=== PATIENT | male | born 1990 | race Caucasian/White ===

== ENCOUNTER 2022-07-29 18:58 | Emergency (ER) | payer OTHER ==
[2022-07-29 19:03] VITALS: BP 130/80; PULSE 88; RESP 18; TEMP 98.8; BMI 37.3
[2022-07-29] MEDS ORDERED: FOLIC ACID 1 MG TABLET (FP) PO ONE (21:28)
[2022-07-29] MEDS ORDERED: MULTIVITAMINS (DAILY MVI) TABLET (FP) PO ONE (21:28)
[2022-07-29] MEDS ORDERED: chlordiazePOXIDE HCL 25 MG CAPSULE PO ONE (21:28)
[2022-07-29] MEDS ORDERED: IBUPROFEN 600 MG TABLET (FP) PO ONE ×2 (21:28→21:33)
[2022-07-29] MEDS ORDERED: THIAMINE HCL 100 MG TABLET (FP) PO ONE (21:28)
[2022-07-29] MEDS ORDERED: THIAMINE HCL 100 MG TABLET (FP) ONE (21:33)
[2022-07-29] MEDS ORDERED: chlordiazePOXIDE HCL 25 MG CAPSULE ONE (21:33)
[2022-07-29] MEDS ORDERED: MULTIVITAMINS (DAILY MVI) TABLET (FP) ONE (21:34)
[2022-07-29] MEDS ORDERED: FOLIC ACID 1 MG TABLET (FP) ONE (21:34)
== END 2022-07-29 23:07 | disposition home or self-care (01) ==
LOC: JER 18:58
DX: F10.239 Alcohol dependence with withdrawal, unspecified (principal)
CPT/HCPCS: 73110-TC-LT-FY; 73130-TC-LT-FY; 73562-TC-LT-FY; 99284-25

== ENCOUNTER 2022-07-29 22:57 | Inpatient (IN) | payer OTHER ==
[2022-07-29] MEDS ORDERED: chlordiazePOXIDE HCL 25 MG CAPSULE PO SCH (23:00)
[2022-07-29] MEDS ORDERED: NALOXONE HCL (KLOXXADO) 8 MG SPRAY NS PRN (23:07)
[2022-07-29] MEDS ORDERED: ONDANSETRON *ODT* 4 MG TABLET SL PRN (23:07)
[2022-07-29] MEDS ORDERED: LOPERAMIDE HCL 2 MG CAPSULE PO PRN (23:07)
[2022-07-29] MEDS ORDERED: IBUPROFEN 400 MG TABLET (FP) PO PRN (23:07)
[2022-07-29] MEDS ORDERED: BENZOCAINE/MENTHOL (CHLORASEPTIC ) LOZENGE MM PRN (23:07)
[2022-07-29] MEDS ORDERED: guaiFENesin 200 MG/10 ML 10 ML UNIT-DOSE CUPS PO PRN (23:07)
[2022-07-29] MEDS ORDERED: BISMUTH SUBSALICYLATE 524 MG/30 ML PO PRN (23:07)
[2022-07-29] MEDS ORDERED: DICYCLOMINE HCL 10 MG CAPSULE PO PRN (23:07)
[2022-07-29] MEDS ORDERED: MAGNESIUM HYDROX 2400MG/30ML ORAL SUSPENSION 30 ML CUP PO PRN (23:07)
[2022-07-29] MEDS ORDERED: P-EPHED 60MG/TRIPROLIDI 2.5MG TABLET PO PRN (23:07)
[2022-07-29] MEDS ORDERED: MAG HYDROX/AL HYDROX/SIMETH 30 ML UNIT-DOSE CUP PO PRN (23:07)
[2022-07-29] MEDS ORDERED: MAGNESIUM CITRATE 300 ML BOTTLE PO PRN (23:07)
[2022-07-29] MEDS ORDERED: NICOTINE POLACRILEX 2 MG GUM BUC PRN (23:07)
[2022-07-29] MEDS ORDERED: ACETAMINOPHEN 325 MG TABLET (FP) PO PRN (23:07)
[2022-07-29 23:36] VITALS: BMI 36.6
[2022-07-30] MEDS: chlordiazePOXIDE HCL 25 MG CAPSULE PO PRN ×2 (00:17→13:23)
[2022-07-30] MEDS ORDERED: chlordiazePOXIDE HCL 25 MG CAPSULE ONE ×2 (05:44→10:38)
[2022-07-30] MEDS: chlordiazePOXIDE HCL 25 MG CAPSULE PO SCH ×4 (05:51→22:34)
[2022-07-30] MEDS ORDERED: NICOTINE 21 MG/24 HOURS TOPICAL PATCH TD SCH (10:00)
[2022-07-30] MEDS ORDERED: FLU VACC QS2022-23(6MOS UP)/PF 60 MCG/0.5 ML SYRINGE IM ONE (12:00)
[2022-07-30 12:01] LABS: HEMATOCRIT 31.7 % (35.4-49); HEMOGLOBIN 10.7 GM/dL (11.7-16.9); MCH 27.2 pg (25.7-33.7); MCHC 33.8 g/dl (32.0-35.9); MEAN CELL VOLUME 80.3 fl (80-96); PLATELET COUNT 131 10^3/uL (134-434); RBC 3.95 M/mm3 (4.00-5.60); RDW 16.6 % (11.9-15.9); WHITE BLOOD COUNT 4.3 K/mm3 (4.0-10.0)
[2022-07-30] MEDS: PRENATAL VITAMINS W/ FOLIC ACID TABLET (FP) PO SCH (12:05)
[2022-07-30 12:48] LABS: CALCIUM 8.8 mg/dL (8.5-10.1)
[2022-07-30 12:49] LABS: ALBUMIN 3.2 g/dl (3.4-5.0); BLOOD UREA NITROGEN 11.2 mg/dL (7-18)
[2022-07-30 12:53] LABS: CREATININE 0.6 mg/dL (0.55-1.3)
[2022-07-30 12:54] LABS: BILIRUBIN,TOTAL 0.6 mg/dL (0.2-1)
[2022-07-30 12:56] LABS: TOT PROT 7.2 g/dl (6.4-8.2)
[2022-07-30] MEDS: IBUPROFEN 600 MG TABLET (FP) PO PRN (17:35)
[2022-07-30] MEDS: MELATONIN 5 MG TABLETS PO SCH (22:33)
[2022-07-30] MEDS: METHOCARBAMOL 500 MG TABLET PO PRN (22:33)
[2022-07-30] MEDS: THIAMINE HCL 100 MG TABLET (FP) PO SCH (22:33)
[2022-07-31] MEDS: chlordiazePOXIDE HCL 25 MG CAPSULE PO SCH ×4 (05:35→22:06)
[2022-07-31] MEDS: IBUPROFEN 600 MG TABLET (FP) PO PRN ×2 (05:40→22:08)
[2022-07-31] MEDS: METHOCARBAMOL 500 MG TABLET PO PRN ×2 (10:51→18:13)
[2022-07-31] MEDS: PRENATAL VITAMINS W/ FOLIC ACID TABLET (FP) PO SCH (10:51)
[2022-07-31] MEDS: ACETAMINOPHEN 325 MG TABLET (FP) PO PRN ×2 (10:53→17:29)
[2022-07-31] MEDS ORDERED: POTASSIUM CHLORIDE TABS 20 MEQ TABLET.ER (FP) PO ONE ×2 (12:53→14:30)
[2022-07-31] MEDS: NICOTINE 10 MG CARTRIDGE (INHALER) IH PRN (18:45)
[2022-07-31] MEDS: THIAMINE HCL 100 MG TABLET (FP) PO SCH (22:06)
[2022-07-31] MEDS: MELATONIN 5 MG TABLETS PO SCH (22:06)
[2022-08-01] MEDS ORDERED: chlordiazePOXIDE HCL 10 MG CAPSULE PO PRN
[2022-08-01] MEDS: chlordiazePOXIDE HCL 10 MG CAPSULE PO SCH ×4 (06:18→22:10)
[2022-08-01] MEDS: ACETAMINOPHEN 325 MG TABLET (FP) PO PRN ×3 (06:19→22:12)
[2022-08-01] MEDS: PRENATAL VITAMINS W/ FOLIC ACID TABLET (FP) PO SCH (10:41)
[2022-08-01] MEDS: METHOCARBAMOL 500 MG TABLET PO PRN ×3 (10:42→22:12)
[2022-08-01] MEDS: NICOTINE 10 MG CARTRIDGE (INHALER) IH PRN ×2 (14:32→18:33)
[2022-08-01] MEDS: IBUPROFEN 600 MG TABLET (FP) PO PRN (17:39)
[2022-08-01] MEDS: MELATONIN 5 MG TABLETS PO SCH (22:10)
[2022-08-01] MEDS: THIAMINE HCL 100 MG TABLET (FP) PO SCH (22:10)
[2022-08-02] MEDS: chlordiazePOXIDE HCL 10 MG CAPSULE PO SCH ×2 (05:45→18:00)
[2022-08-02] MEDS: METHOCARBAMOL 500 MG TABLET PO PRN ×4 (05:46→22:08)
[2022-08-02] MEDS: IBUPROFEN 600 MG TABLET (FP) PO PRN (05:47)
[2022-08-02] MEDS: PRENATAL VITAMINS W/ FOLIC ACID TABLET (FP) PO SCH (10:32)
[2022-08-02] MEDS: NICOTINE 10 MG CARTRIDGE (INHALER) IH PRN (10:39)
[2022-08-02] MEDS: hydrOXYzine PAMOATE 25 MG CAPSULE (FP) PO PRN ×2 (12:01→18:04)
[2022-08-02] MEDS: ACETAMINOPHEN 325 MG TABLET (FP) PO PRN (18:02)
[2022-08-02] MEDS ORDERED: traZODone HCL 50 MG TABLET (FP) PO SCH (22:00)
[2022-08-02] MEDS: MELATONIN 5 MG TABLETS PO SCH (22:09)
[2022-08-02] MEDS: THIAMINE HCL 100 MG TABLET (FP) PO SCH (22:10)
[2022-08-03] MEDS ORDERED: chlordiazePOXIDE HCL 10 MG CAPSULE PO ONE (05:00)
[2022-08-03] MEDS: METHOCARBAMOL 500 MG TABLET PO PRN (06:03)
[2022-08-03] MEDS: ACETAMINOPHEN 325 MG TABLET (FP) PO PRN (06:04)
[2022-08-03 09:21] VITALS: BP 106/60; PULSE 85; RESP 18; TEMP 97.1
== END 2022-08-03 10:53 | disposition other institution (70) | DRG 774 ==
LOC: YASAS 22:57 → Y3N 07-30 10:59
PROVIDERS: ADMIT Allergy & Immunology; ATTEND Surgery
PROC: HZ2ZZZZ Detoxification Services for Substance Abuse Treatment (ICD-10-PCS; principal; 2022-07-30)
DX: F10.230 Alcohol dependence with withdrawal, uncomplicated (principal); F14.20 Cocaine dependence, uncomplicated; F17.210 Nicotine dependence, cigarettes, uncomplicated; F19.24 Other psychoactive substance dependence with psychoactive substance-induced mood disorder; F41.9 Anxiety disorder, unspecified; D64.9 Anemia, unspecified; D69.6 Thrombocytopenia, unspecified; E87.6 Hypokalemia; R73.9 Hyperglycemia, unspecified; R74.01 Elevation of levels of liver transaminase levels; Z59.00 Homelessness unspecified; Z56.0 Unemployment, unspecified
CPT/HCPCS: 36415; 80053; 84132; 85027; 86780; 93005; 93010; C9803-CS; G0008; Q2036; U0003; U0005